=== PATIENT | male | born 1940 | race Caucasian/White ===

== ENCOUNTER 2020-07-08 11:08 | Emergency (ER) | payer OTHER, MEDICAID ==
[~2020-07-08] VITALS: Ht 175.3 cm; Wt 63.5 kg
[~2020-07-08 11:08] MED LIST: DECADRON4 MG PO; ELIQUIS2.5 MG PO; KEFLEX500 M1 PO; LAC30L PO; PRI20 PO
[2020-07-08 11:15] VITALS: Ht 175.3 cm; Wt 63.5 kg
[2020-07-08 16:03] LABS: RED CELL DISTRIBUTION WIDTH 14.5 % (12.1-16.2)
[2020-07-08 16:12] LABS: PLATELET COUNT 473 x10^3mcL (152-348)
[2020-07-08 16:38] LABS: CALCIUM 8.4 mg/dL (8.5-10.1); CARBON DIOXIDE 25.4 mmol/L (21-32); CHLORIDE SERUM 99 mmol/L (98-107); CREATININE SERUM 0.9 mg/dL (0.7-1.3); GLUCOSE SERUM 108 mg/dL (74-106); POTASSIUM SERUM 3.6 mmol/L (3.5-5.1); SODIUM SERUM 133 mmol/L (136-145)
[2020-07-08 16:42] LABS: ALKALINE PHOSPHATASE 104 U/L (46-116); ALT/SGPT 63 U/L (16-63); AST/SGOT 21 U/L (15-37); BILIRUBIN TOTAL 0.5 mg/dL (0.20-1.00); TOTAL PROTEIN, SERUM 6.5 g/dL (6.4-8.2)
[2020-07-08 16:45] LABS: ALBUMIN 3.1 g/dL (3.4-5.0)
[2020-07-08 18:48] LABS: BAND NEUTROPHIL 1 % (0-10); BASOPHIL 0 % (0-2); MONOCYTE 8 % (0-7); SEGMENTED NEUTROPHILS 73 % (37-75); rbc morphology (normal/abnorm) NORMAL (NORMAL)
[2020-07-08 18:52] VITALS: BP 154/67
== END 2020-07-08 18:52 | disposition home or self-care (01) ==
LOC: ED 11:08
PROVIDERS: Emergency Medicine
DX: R79.9 Abnormal finding of blood chemistry, unspecified (principal); R50.9 Fever, unspecified